=== PATIENT | female | born 1950 | race Caucasian/White ===

== ENCOUNTER → 2017-05-11 | Outpatient (CLI) | payer OTHER ==
[~2017-05-11] MED LIST: CARV12.52 PO; CYAN10004 PO; GLIM2TAB PO; HYDR25TA4 PO; IRON PO; METF-384 PO; POTA20TA16 PO; RUTIN PO; VITAMIN D 3 PO; WARF10TA PO; WARF5TAB7 PO; [UNRECOGNIZED DRUG - OTHER] PO; [UNRECOGNIZED DRUG - OTHER] PO; [UNRECOGNIZED DRUG - OTHER] PO; pine bark PO; quercetin PO
--- NOTE | 2017-05-11 15:42 | MAMMOGRAPHY REPORT ---
BILATERAL DIGITAL SCREENING MAMMOGRAM TOMOSYNTHESIS WITH CAD: 05/11/2017 CLINICAL HISTORY: Routine screening. Patient has no complaints. TECHNIQUE: Breast tomosynthesis in addition to standard 2D mammography was performed. Current study was also evaluated with a Computer Aided Detection (CAD) system. COMPARISON: Comparison is made to exams dated: 05/09/2016 mammogram, 05/06/2015 mammogram, 04/30/2014 ma mmogram, 04/17/2013 mammogram, 04/16/2012 mammogram, and 04/13/2011 mammogram - [facility] nter. BREAST COMPOSITION: The tissue of both breasts is heterogeneously dense, which may obscure small mas ses. FINDINGS: There are stable asymmetries bilaterally. Diffuse bilateral benign-appearing rodlike and coarse calcifications. No new suspicious mass, architectural distortion or cluster of microcalcifica tions is seen. IMPRESSION: ACR BI-RADS CATEGORY 1: NEGATIVE There is no mammographic evidence of malignancy. A 1 year screening mammogram is recommended. The pa tient will receive written notification of the results. Approximately 10% of breast cancers are not detected with mammography. A negative mammographic report should not delay biopsy if a clinically suggestive mass is present. Caitlyn Garner M.D. ay/:05/11/2017 15:25:19 Hearing Therapy Director: Maia BUSTAMANTE)(Jamin), [facility] letter sent: Normal 1/2 BI-RADS Code: ACR BI-RADS Category 1: Negative
== END | disposition home or self-care (01) ==
LOC: C.MAMM 09:00
PROVIDERS: ATTEND Family Medicine
DX: Z12.31 Encounter for screening mammogram for malignant neoplasm of breast (principal)

== ENCOUNTER → 2017-10-02 | Outpatient (CLI) | payer OTHER | END | disposition home or self-care (01) | LOC: C.RDSM 14:03 | PROVIDERS: ATTEND Physical Medicine & Rehabilitation Sports Medicine | DX: M25.511 Pain in right shoulder (principal); M25.512 Pain in left shoulder ==

== ENCOUNTER → 2017-10-06 | Outpatient (CLI) | payer OTHER ==
--- NOTE | 2017-10-06 08:48 | DIAGNOSTIC IMAGING REPORT ---
R UPPER EXT JOINT WITHOUT CLINICAL HISTORY: 66 years-old Female with R SHOULDER PAIN. Chronic right shoulder pain COMPARISON: Right shoulder radiographs 10/02/2017. TECHNIQUE: Multiplanar, multi sequence MRI of the right shoulder was performed without intravenous contrast. FINDINGS: ROTATOR CUFF: Full-thickness tear of the anterior and mid fibers of the supraspinatus tendon measures 2.3 x 2.5 cm in transverse and AP dimension nicely seen on image 11 series 6 and image 6 series 10. Tendon is retracted to the level of the mid humeral head. There are some mid and posterior fibers of the supraspinatus tendon which remain intact. There is mild atrophy of the supraspinatus musculature. Mild to moderate tendinosis of the infraspinatus tendon with low-grade interstitial tearing of the insertional fibers as seen on image 8 series 6. The subscapularis tendon is intact with moderate tendinosis. Teres minor is intact. BICEPS TENDON: The long-head biceps tendon is intact. Mild intra-articular long head biceps tendinosis. The biceps james and anchor are intact. LABRUM: There is tearing of the superior labrum within both the anterior and posterior quadrants without associated edema. Mild fraying of the inferior labrum. No displaced fragment or parameniscal cyst identified. GLENOHUMERAL JOINT: Mild glenohumeral joint space narrowing with marginal spurring and chondral thinning. Small glenohumeral joint effusion. There is no loose body or debris present within the glenohumeral joint. ACROMIOCLAVICULAR JOINT: Mild to moderate acromioclavicular osteoarthritis. No evidence of os acromiale. Moderate subacromial/subdeltoid bursitis. OUTLET SPACES: The suprascapular notch and quadrilateral space are without obstructing or space occupying lesions. BONE MARROW: Multifocal subcortical cystic changes of the humeral head. No acute fracture, dislocation or significant marrow edema. No marrow replacing process. SOFT TISSUES: The periarticular soft tissues are unremarkable. IMPRESSION: 1. Mild glenohumeral and mild to moderate acromioclavicular osteoarthritis with small joint effusion and moderate subacromial/subdeltoid bursitis. 2. Full-thickness tear of the anterior and mid fibers of the supraspinatus tendon measuring up to 2.5 cm with tendon retraction to the level of the mid humeral head. Mild associated atrophy of the supraspinatus musculature. 3. Mild to moderate tendinosis of the infraspinatus tendon with low-grade interstitial tearing. 4. Likely chronic labral tears as above. 5. Long head biceps tendon appears intact. The above report was generated using voice recognition software. It may contain grammatical, syntax or spelling errors. Electronically signed by: Alfonso Benz M.D. 10/06/2017 8:47 AM Dictated Date/Time: 10/06/2017 8:37 AM
== END | disposition home or self-care (01) ==
LOC: C.MRI 07:38
PROVIDERS: ATTEND Physical Medicine & Rehabilitation Sports Medicine
DX: M75.101 Unspecified rotator cuff tear or rupture of right shoulder, not specified as traumatic (principal)

== ENCOUNTER → 2018-05-31 | Outpatient (CLI) | payer OTHER ==
[~2018-05-31] MED LIST changes: +POTA-639 PO; -POTA20TA16 PO
--- NOTE | 2018-06-01 15:29 | MAMMOGRAPHY REPORT ---
BILATERAL DIGITAL SCREENING MAMMOGRAM TOMOSYNTHESIS WITH CAD: 05/31/2018 CLINICAL HISTORY: Routine screening. Patient has no complaints. TECHNIQUE: The study was acquired using full field digital technology and interpreted from soft copy. Breast tomosynthesis in addition to standard 2D mammography was performed. Current study was also ev aluated with a Computer Aided Detection (CAD) system. COMPARISON: Comparison is made to exams dated: 05/11/2017 mammogram, 05/09/2016 mammogram, 05/06/2015 m ammogram, 04/30/2014 mammogram, 04/17/2013 mammogram, and 04/16/2012 mammogram - [facility] nter. BREAST COMPOSITION: The tissue of both breasts is heterogeneously dense, which may obscure small mass es. FINDINGS: No suspicious masses, calcifications, or areas of architectural distortion are noted in either breast . There has been no significant interval change compared to prior exams. Scattered bilateral benign- appearing calcifications are again noted. IMPRESSION: ACR BI-RADS CATEGORY 2: BENIGN There is no mammographic evidence of malignancy. A 1 year screening mammogram is recommended.( 019) The patient will receive written notification of the results. Some breast cancers are not detected with mammography. A negative mammographic report should not julianna y biopsy if a clinically suggestive mass is present. Lily Hart M.D. /:05/31/2018 16:02:18 Reuse Technician: RT Chelsea(R)(M), [facility] letter sent: Normal 1/2 BI-RADS Code: ACR BI-RADS Category 2: Benign
== END | disposition home or self-care (01) ==
LOC: C.MAMM 14:51
PROVIDERS: ATTEND Family Medicine
DX: Z12.31 Encounter for screening mammogram for malignant neoplasm of breast (principal)

== ENCOUNTER 2019-11-15 09:44 | Observation (INO) ==
[2019-11-15] MEDS ORDERED: ALBUT/IPRATROP 3MG/0.5MG NEB 3 ML VIAL INH STA (10:03)
[2019-11-15] MEDS ORDERED: SODIUM CHLORIDE 0.9% 1000ML 1,000 ML IV ONE ×2 (10:03→12:03)
[2019-11-15 10:35] LABS: Basophils # (auto) 0.02 K/uL (0-0.2); Basophils % (auto) 0.4 %; Eosinophils # (auto) 0.06 K/uL (0-0.5); Eosinophils % (auto) 1.3 %; Hematocrit (blood only) 27.9 % (37-47); Hemoglobin 9.2 g/dL (12.0-16.0); Immature Granulocytes # (auto) 0.01 K/uL (0.00-0.02); Immature Granulocytes % (auto) 0.2 %; Lymphocytes # (auto) 0.22 K/uL (1.2-3.4); Lymphocytes % (auto) 4.6 %; Mean Corpuscular Hemoglobin 32.3 pg (25-34); Mean Corpuscular Volume 97.9 fL (80-100); Mean Platelet Volume 10.3 fL (7.4-10.4); Monocytes % (auto) 6.3 %; Neutrophils # (auto) 4.13 K/uL (1.4-6.5); Neutrophils % (auto) 87.2 %; Platelet Count 293 K/uL (130-400); RDW Coefficient of Variation 13.5 % (11.5-14.5); RDW Standard Deviation 47.7 fL (36.4-46.3); Red Blood Count 2.85 M/uL (4.2-5.4); White Blood Count 4.74 K/uL (4.8-10.8)
[2019-11-15 10:51] LABS: BUN Creatinine Ratio 24.6 (10-20); Blood Urea Nitrogen 56 mg/dl (7-18); Calcium 10.5 mg/dl (8.5-10.1); Carbon Dioxide 25 mmol/L (21-32); Chloride 99 mmol/L (98-107); Creatinine Clr Calc Pharmacy 22.9 ml/min; Est GFR (African American) 24.4; Est GFR (Non-African American) 21.1; Glucose 272 mg/dl (70-99); Magnesium 1.6 mg/dl (1.8-2.4); Potassium 5.6 mmol/L (3.5-5.1); Sodium 131 mmol/L (136-145)
[2019-11-15 10:56] LABS: Alanine Aminotransferase 16 U/L (12-78); Albumin Globulin Ratio 0.6 (0.9-2); Alkaline Phosphatase 132 U/L (45-117); Aspartate Aminotransferase 18 U/L (15-37); Bilirubin,Total 0.3 mg/dl (0.2-1); Globulin 4.7 gm/dl (2.5-4.0); Total Protein 7.7 gm/dl (6.4-8.2); Troponin I < 0.015 ng/ml (0-0.045)
[2019-11-15 11:00] LABS: Partial Thromboplastin Ratio 2.4; Prothrombin Time 79.1 Seconds (9.0-12.0)
--- NOTE | 2019-11-15 11:14 | XRay Report ---
XR chest 1V portable HISTORY: 69 years-old Female SOB acute shortness of breath COMPARISON: Chest radiograph 10/11/2019, PET CT 09/18/2019 TECHNIQUE: Semierect portable AP view of the chest FINDINGS: Cardiac silhouette is mildly enlarged. Calcified plaque of the thoracic aortic arch. Ill-defined righ t hilar/infrahilar opacities have mildly progressed in the interval. Mild right hemidiaphragmatic amanda vation. No pneumothorax, large pleural effusion or overt pulmonary edema. Left upper lobe pulmonary n odule is better seen on comparison chest CT. Degenerative changes of the shoulders and spine. Lytic l esion of the posterior left fifth rib redemonstrated. IMPRESSION: 1. Right hilar/infrahilar opacities have progressively worsened from comparison. Metastatic disease v ersus infectious or inflammatory pneumonitis are differential considerations. 2. Lytic lesion of the posterior left fifth rib redemonstrated. ACT 112: Negative or not required by law. The above report was generated using voice recognition software. It may contain grammatical, syntax o r spelling errors. Electronically signed by: Alfonso Benz M.D. 11/15/2019 11:12 AM
[2019-11-15] MEDS ORDERED: MAGNESIUM SULFATE / D5W 1 GM/100 ML BAG IV ONE (11:18)
[2019-11-15 11:37] LABS: Partial Thromboplastin Time 63.8 Seconds (21.0-31.0)
[2019-11-15] MEDS ORDERED: PHYTONADIONE 5 MG TAB PO STA (12:03)
--- NOTE | 2019-11-15 12:26 | History & Physical Report ---
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 -H/o mediastinal metastasis with today's CXR showing right hilar/infrahilar opacities have progressively worsened from comparison. Metastatic disease versus infectious or inflammatory pneumonitis as differential diagnosis -Afebrile, no leukocytosis, stable cough, no wheezing so lower concern for infectious process. No sick contacts. Added procalcitonin, ESR and CRP pending -Has not received antibiotics at this point. Will re-evaluate with additional resulting labs (2) Acute kidney injury superimposed on chronic kidney disease: Cr elevated to 2.28 (baseline low 1s) in setting of poor PO intake, lisinopril-hctz use -Given 1 L NSS in ED. Will continue with maintenance fluids, daily BMP -Holding lisinopril-hctz (3) Salivary gland cancer: (4) Metastasis to mediastinal lymph node: (5) Bone metastasis: Following with Dr. Bah for daily XRT and has follow-up scheduled with Dr. Bah of [facility] to further discuss plans for systemic treatment -Recently had tramadol increased from 50 to 100mg but it is causing nausea and some confusing. Will decreased back to 50mg Q6H PRN. Also added Tylenol 100mg Q8H PRN (6) Supratherapeutic INR: INR of 9 today - last took coumadin yesterday -Current regimen is 5mg MWF and 10mg SuTuThSa -No active bleeding. Monitor closely -Given 5mg PO Vit K in ED. Hold coumadin -Monitor daily INR (7) Hyperkalemia: K of 5.6 initially in setting of poor PO intake, KCl supplement -Should improve with IV fluids, holding potassium supplement -Monitor daily (8) History of pulmonary embolism: Chronic anticoagulation for remote history of DVTs and PE -Holding coumadin with supratherapeutic INR (9) Anemia: Hgb of 9.2 (most recently documented hgb of 11.4 from 2016) -MCV of 98, RDW mildly elevated at 47 -Monitor with daily CBC, continue iron supplement (10) Constipation: No BM for past 2 days in setting of poor PO intake -Schedule daily Miralax, added Senokot-S (11) Poor appetite: In setting of recent cancer diagnosis, contributing to electrolyte abnormalities -Added protein shake BID -Dietitian consult for suggestions to improve overall nutrition DVT Ppx: SCDs Code status: DNR per discussion with patient PCP: Denisa Dispo: Admitted to PCU. Discharge planning, PT and OT ordered. Patient seen in collaboration with Dr. Polanco. Please see addendum. 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 Was diagnosed with salivary gland cancer in August 2019 and has been undergoing daily radiation at [facility] with Dr. Bah. Did not feel well enough for radiation this morning and was directed to the ED for further evaluation. Denies any fever or chills but endorses cough with yellow productive sputum ever since cancer diagnosis 2 months ago. No wheezing or hemoptysis. Decreased appetite over the last week or so with poor p.o. intake. Also became nauseous with increase tramadol dose from 50 to 100mg two days ago and has been nauseous. Denies any vomiting. Denies lightheadedness, visual changes, chest pain, palpitations, abdominal pain, dysuria or diarrhea. Feels constipated and has not had a bowel movement in 2 days. Saturating at 91% on room air. Does not require home O2. Allergies Allergy/AdvReac Type Severity Reaction Status Date / Time [id number] Reductase Allergy Unknown muscle Verified 11/11/19 12:04 Inhibitor cramping and difficulty walking onion AdvReac Intermediate Verified 11/11/19 12:04 ADHESIVE Allergy Unknown irritated Uncoded 11/11/19 12:04 skin Home Medications Home Medications Medication Instructions Recorded Confirmed Type carvedilol 12.5 mg tablet 12.5 mg PO BID 09/30/19 11/15/19 History cyanocobalamin (vitamin B-12) 1,000 mcg PO BID 09/30/19 11/15/19 History 1,000 mcg capsule metformin 1,000 mg tablet 1,000 mg PO BID 09/30/19 11/15/19 History amlodipine 5 mg PO QDL 10/04/19 11/15/19 History ferrous sulfate [iron] 325 mg PO BID 10/04/19 11/15/19 History lisinopril-hydrochlorothiazide 1 tab PO QDL 10/04/19 11/15/19 History loratadine 10 mg PO QDL 10/04/19 11/15/19 History multivitamin 1 tab PO QDL 10/04/19 11/15/19 History potassium chloride [Klor-Con M20] 20 meq PO QDL 10/04/19 11/15/19 History glimepiride 2 mg tablet 2 mg PO DAILY 10/30/19 11/15/19 History morphine 15 mg tablet,extended 15 mg PO Q12H 10/30/19 11/15/19 History release warfarin 5 mg tablet 10 mg PO SUTUTHSA@1600 tab 10/30/19 11/15/19 History tramadol 100 mg PO Q6H PRN 11/15/19 11/15/19 History warfarin 5 mg PO MOWEFR@1600 11/15/19 11/15/19 History Past Med/Surg History Medical History (Updated 11/15/19 @ 13:45 by Ewa Goode PA-C) Anemia Bone metastasis (Chronic) Chronic anticoagulation Diabetes mellitus, type 2 Dyslipidemia Heart murmur Hiatal hernia History of diverticulosis History of pulmonary embolism (Chronic) Hypertension 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 Cordova 10-11-19 Family History Mother , 72yo Diabetes IBS (irritable bowel syndrome) Blood clot in vein Ulcerative colitis Father , 61yo Multiple myeloma Sister Diabetes Bipolar disorder Obesity Social History Preferred Language: Vietnamese Communication Ability: Effective Visual Impairment: No Limitations Hearing Ability: Normal Stave Grader Required: No Beliefs That Will Affect Care: None marital status: Current Living Situation: Significant Other current occupational status: retired current occupation: Did secretarial work; Other Information That Helps Us Care for You: No Feels Safe at Home: Yes Safety Concerns: Feels Safe At This Time Smoking Status: Former smoker Tobacco Type: cigarettes ; packs per day: 2 ; Cigarettes Per Day: 3 PPD x 48 yrs;Quit 1981 ; Smoking End Date: 1981 ; Second Hand Exposure: Yes ; Hx Alcohol Use: Yes Alcohol type: beer and wine Hx Substance Use: No caffeine: No during the past year weight has: remained stable Review of Systems Review of Systems: At least ten systems reviewed and negative except as noted in the HPI. Physical Exam Physical Exam: See Dr. Polanco's addendum for physical exam Results & Data Vital Signs (Past 12 Hours) Vital Signs Temp Pulse Pulse Resp BP Pulse Ox 11/15/19 10:29 78 16 92 11/15/19 10:03 100 11/15/19 09:45 36.6 C 68 15 163/78 H 99 Laboratory Results Short CBC 11/15/19 Range/Units 10:25 WBC 4.74 L (4.8-10.8) K/uL Hgb 9.2 L (12.0-16.0) g/dL Hct 27.9 L (37-47) % Plt Count 293 (130-400) K/uL BMP 11/15/19 10:25 Sodium 131 L Potassium 5.6 H Chloride 99 Carbon Dioxide 25 BUN 56 H Creatinine 2.28 H Glucose 272 H Calcium 10.5 H Cardiac Enzymes 11/15/19 Range/Units 10:25 Troponin I < 0.015 (0-0.045) ng/ml Liver Function 11/15/19 Range/Units 10:25 Total Bilirubin 0.3 (0.2-1) mg/dl AST 18 (15-37) U/L ALT 16 (12-78) U/L Alkaline Phosphatase 132 H (45-117) U/L Albumin 3.0 L (3.4-5.0) gm/dl Diagnostic Findings CXR: IMPRESSION: 1. Right hilar/infrahilar opacities have progressively worsened from comparison. Metastatic disease versus infectious or inflammatory pneumonitis are differen tial considerations. 2. Lytic lesion of the posterior left fifth rib redemonstrated. 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 History detailed by Ewa Goode PA-C History notable for shortness of breath, fatigue, chronic productive cough (over 2 months, unchanged), reports feeling dizzy and nausea which she ascribes to tramadol which was increased 2 days ago, constipation, gum bleed with brushing. Denied any fevers, chills, vomiting Denied any hematuria, BRBPR, hematochezia, melena On physical exam, General: Elderly woman in no acute distress Eyes: PERRL, conjunctivae normal, mild pallor, anicteric sclerae, EOM intact bilaterally ENMT: External ear and nose normal, oropharynx normal Neck: Right submandibular swelling, Non tender, significant submandibular lymphadenopathy (reported this has been chronic since surgeries/biopsy), no tracheal deviation Respiratory: Normal respiratory effort, no respiratory distress, lungs clear to auscultation, no crackles and no wheezes Cardiovascular: Pulse is RRR. S1 S2 no murmurs. +1 pedal edema Chest (Breasts): Chest: normal inspection of chest Gastrointestinal (Abdomen): Abdomen is not distended, soft, non-tender to palpation, no guarding, no palpable hepatosplenomegaly, normal bowel sounds Musculoskeletal: No cyanosis or clubbing Genitourinary: No CVA tenderness, no suprapubic tenderness Skin: No rash noted on gross inspection, No ulcers noted, hyperpigemented skin on both shins (features of chronic stasis dermatitis) Neurologic: Alert and oriented x 3, No focal weakness, sensation grossly intact Psychiatric: Euthymic affect, normal judgement Lymphatic: +Right submandibular lymphadenopathy, No axillary lymphadenopathy Chest Xray 1. Right hilar/infrahilar opacities have progressively worsened from comparison. Metastatic disease versus infectious or inflammatory pneumonitis are differential considerations. 2. Lytic lesion of the posterior left fifth rib redemonstrated. Hb 9.2 Cr 2,28 INR 9 K 5.9 Mag 1.6 Calcium corrected for albumin is 11.3 Na corrected for glucose is 134 REBECCA on CKD Hypomagnesemia Hyperkalemia Hypercalcemia Supratherapeutic INR Normocytic Anemia Shortness of breath Low suspicion for pneumonia Get procalcitonin. No antibiotics Replete mag and monitor Continue IVF Monitor calcium and potassium Hold lisinopril-HCTZ, metformin Monitor Cr Got po vit K in ER. Hold coumadin and monitor INR and bleeding Monitor Hb Constipation likely related to tramadol. Laxatives Other plan as detailed above (1) Anemia Anemia type: unspecified type Qualified Code(s): D64.9 - Anemia, unspecified
[2019-11-15] MEDS ORDERED: TRAMADOL HCL 50 MG TABLET PO PRN (13:04)
[2019-11-15] MEDS ORDERED: GLUCAGON FOR INJ 1 MG VIAL SQ PRN (14:04)
[2019-11-15] MEDS ORDERED: GLUCOSE 10 TABS/TUBE PO PRN (14:04)
[2019-11-15] MEDS ORDERED: GLUCOSE 40% GEL 15 GM TUBE PO PRN (14:04)
[2019-11-15] MEDS ORDERED: CARBOHYDRATES FOR HYPOGLYCEMIA PO PRN (14:04)
[2019-11-15] MEDS ORDERED: DEXTROSE 50% 50 ML SYRINGE IV PRN (14:04)
[2019-11-15] MEDS: SODIUM CHLORIDE 0.9% 1000ML 1,000 ML IV SCH (15:36)
[2019-11-15] MEDS: DOCUSATE SODIUM/SENNA 50/8.6MG TAB PO SCH (15:36)
[2019-11-15] MEDS: ACETAMINOPHEN 500 MG TAB PO SCH ×2 (15:36→21:07)
--- NOTE | 2019-11-15 17:07 | Emergency Department Note ---
Entered by Juliana Sandhu acting as a scribe for History of Present Illness General Chief complaint: Shortness of Breath/Dyspnea Stated complaint: SOB Time Seen by Provider: 11/15/19 09:57 Source: patient History of Present Illness Onset (ago): day(s) (this morning) Location: chest Pain Consistency: + other (episode) Maximum Pain Intensity: 3 Quality: + other (shortness of breath) Associated symptoms: + nausea/vomiting (Positive nausea. Negative vomiting. ) and + other (disoriented, dizzy, feels dehydrated); no cough and no fever/chills (fever) The patient is a 69 year old female who presents to the Emergency Room with complaints of an episode of shortness of breath starting this morning. 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 Bah. She states that she is only being treated with radiation and no chemotherapy as they are unsure what the source of her cancer is. She states that her first treatment was 8 days ago and she was supposed to have another today, but when she noticed that she was short of breath, she didnt feel comfortable going for the treatment. The patient notes that she has increased pain when lying flat to get the radiation so last week they upped her Tramadol from 50 mg to 100 mg every 6 hours. She states that since the increase she has had felt disoriented and dizzy. The patient complains of feeling dehydrated and nauseous. She notes that she did take an antiemetic this morning. The patient notes that she does have an inhaler at home, but has not used it in years. She notes that she was a smoker, but quit in the . She notes that she has a history of a DVT 23 years ago and is on Warfarin. She states that recently her levels have been okay, but they have been back and for the between too low and high, so they have been working on adjusting it. The patient denies a fever, increased cough, vomiting, use of oxygen, a history of diagnosed lung disease, and a history of a heart attack. Home Medications Home Medications Medication Instructions Recorded Confirmed Type carvedilol 12.5 mg tablet 12.5 mg PO BID 09/30/19 11/15/19 History cyanocobalamin (vitamin B-12) 1,000 mcg PO BID 09/30/19 11/15/19 History 1,000 mcg capsule metformin 1,000 mg tablet 1,000 mg PO BID 09/30/19 11/15/19 History amlodipine 5 mg PO QDL 10/04/19 11/15/19 History ferrous sulfate [iron] 325 mg PO BID 10/04/19 11/15/19 History lisinopril-hydrochlorothiazide 1 tab PO QDL 10/04/19 11/15/19 History loratadine 10 mg PO QDL 10/04/19 11/15/19 History multivitamin 1 tab PO QDL 10/04/19 11/15/19 History potassium chloride [Klor-Con M20] 20 meq PO QDL 10/04/19 11/15/19 History glimepiride 2 mg tablet 2 mg PO DAILY 10/30/19 11/15/19 History morphine 15 mg tablet,extended 15 mg PO Q12H 10/30/19 11/15/19 History release warfarin 5 mg tablet 10 mg PO SUTUTHSA@1600 tab 10/30/19 11/15/19 History tramadol 100 mg PO Q6H PRN 11/15/19 11/15/19 History warfarin 5 mg PO MOWEFR@1600 11/15/19 11/15/19 History Allergies Allergy/AdvReac Type Severity Reaction Status Date / Time Qaxkrip-Fuk-Cev Reductase Allergy Unknown muscle Verified 11/11/19 12:04 Inhibitor cramping and difficulty walking onion AdvReac Intermediate Verified 11/11/19 12:04 ADHESIVE Allergy Unknown irritated Uncoded 11/11/19 12:04 skin Past Med/Surg History Medical History (Updated 11/15/19 @ 13:45 by Ewa Goode PA-C) Anemia Bone metastasis (Chronic) Chronic anticoagulation Diabetes mellitus, type 2 Dyslipidemia Heart murmur Hiatal hernia History of diverticulosis History of pulmonary embolism (Chronic) Hypertension 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 Cordova 10-11-19 Family History Mother , 72yo Diabetes IBS (irritable bowel syndrome) Blood clot in vein Ulcerative colitis Father , 61yo Multiple myeloma Sister Diabetes Bipolar disorder Obesity Social History Preferred Language: Chinese Communication Ability: Effective Visual Impairment: No Limitations Hearing Ability: Normal [place] Closer Required: No Beliefs That Will Affect Care: None marital status: Current Living Situation: Significant Other current occupational status: retired current occupation: Did secretarial work; Other Information That Helps Us Care for You: No Feels Safe at Home: Yes Safety Concerns: Feels Safe At This Time Smoking Status: Former smoker Tobacco Type: cigarettes ; packs per day: 2 ; Cigarettes Per Day: 3 PPD x 48 yrs;Quit 1981 ; Smoking End Date: 1981 ; Second Hand Exposure: Yes ; Hx Alcohol Use: Yes Alcohol type: beer and wine Hx Substance Use: No caffeine: No during the past year weight has: remained stable Review of Systems See HPI for pertinent positives & negatives. and A total of 10 systems reviewed and were otherwise negative Physical Exam Vital Signs Vital Signs - 24 hr 11/15/19 09:45 11/15/19 10:03 11/15/19 10:27 Temperature 36.6 C Temperature Source Oral Pulse Rate 68 72 Pulse Rate [Radial] Pulse Rate from SpO2 Sensor 73 Respiratory Rate 15 15 Respiratory Effort / Characteristics Non-Labored Respiratory Depth Normal Respiratory Pattern Regular Blood Pressure 163/78 H 127/64 Blood Pressure Mean 106 74 Blood Pressure Position Sitting Pulse Oximetry 99 100 95 Oxygen Delivery Method Room Air Room Air Sepsis Recent Fever Within 48 Hours No Sepsis New/Unexplained Change in Mental Status No Sepsis Action Taken by Nursing No Action Required 11/15/19 10:29 11/15/19 10:40 11/15/19 11:00 Temperature Temperature Source Pulse Rate 68 73 Pulse Rate [Radial] 78 Pulse Rate from SpO2 Sensor 71 73 Respiratory Rate 16 15 17 Respiratory Effort / Characteristics Spontaneous Respiratory Depth Respiratory Pattern Blood Pressure 155/77 H 146/70 H Blood Pressure Mean 115 112 Blood Pressure Position Pulse Oximetry 92 97 90 Oxygen Delivery Method Room Air Sepsis Recent Fever Within 48 Hours Sepsis New/Unexplained Change in Mental Status Sepsis Action Taken by Nursing 11/15/19 12:08 Temperature Temperature Source Pulse Rate 67 Pulse Rate [Radial] Pulse Rate from SpO2 Sensor 69 Respiratory Rate 16 Respiratory Effort / Characteristics Respiratory Depth Respiratory Pattern Blood Pressure 189/77 H Blood Pressure Mean 128 Blood Pressure Position Pulse Oximetry 91 Oxygen Delivery Method Sepsis Recent Fever Within 48 Hours Sepsis New/Unexplained Change in Mental Status Sepsis Action Taken by Nursing GENERAL: Patient is in no acute distress. HEENT: No acute trauma, normocephalic atraumatic, mucous membranes are dry, no nasal congestion, no scleral icterus. NECK: No stridor, no adenopathy, no meningismus, trachea is midline. LUNGS: Scattered wheezes. No rhonchi. Equal breath sounds. No respiratory distress. HEART: 3-4/6 systolic murmur heard best at the right sternal border. Regular rate and rhythm. ABDOMEN: Soft, nontender, bowel sounds positive, no hernias, no peritonitis. EXTREMITIES: No cyanosis or edema, full range of motion of all the joints without pain or difficulty, no signs for acute trauma. NEUROLOGIC: Oriented x 3, no acute motor or sensory deficits, no focal weakness. SKIN: No rash, no jaundice, no diaphoresis. Course Course 957: The patient was evaluated in room A12B. A complete history and physical exam was performed. 1136: I obtained old records from [facility] and reviewed them at this time. On October 02, 2019, the patient had a Creatinine of 1.4 and a Hemoglobin of 11.2. 1156: I discussed the patient's case with Ewa Goode PA-C-[facility]. She will evaluate the patient for further management under Dr. Polanco's service. 1202: I reevaluated the patient and updated her on her test results. I discussed the treatment plan with her. She verbally agrees and understands. Administered Medications Acetaminophen (Tylenol) 1,000 mg PO Q8 [facility] Stop: 12/15/19 14:14 Last Admin: 11/15/19 15:36 Dose: 1,000 mg Documented by: [id number] Ferrous Sulfate (Feosol) 325 mg PO BIDM [facility] Stop: 12/15/19 16:59 Last Admin: 11/15/19 18:27 Dose: 325 mg Documented by: [id number] Sodium Chloride (Nss 1000ml) 1,000 mls @ 100 mls/hr IV .Q10H [facility] Stop: 12/15/19 14:03 Last Admin: 11/15/19 15:36 Dose: 100 mls/hr Documented by: [id number] Insulin Aspart (Novolog Flexpen) 0 units SC ACHS [facility] Stop: 12/15/19 16:29 Last Admin: 11/15/19 18:27 Dose: 7 units Documented by: [id number] Cosigned by: [id number] Senna/Docusate Sodium (Senokot S) 1 tab PO QAM [facility] Stop: 12/15/19 13:29 Last Admin: 11/15/19 15:36 Dose: 1 tab Documented by: [id number] Discontinued Medications Albuterol (Duoneb) 3 ml INH NOW STA Stop: 11/15/19 10:04 Last Admin: 11/15/19 10:29 Dose: 3 ml Documented by: [id number] Sodium Chloride (Nss 1000ml) 1,000 mls @ 999 mls/hr IV .Q1H1M ONE Stop: 11/15/19 11:03 Last Infusion: 11/15/19 12:17 Dose: 0 mls/hr Documented by: [id number] Admin: 11/15/19 10:24 Dose: 999 mls/hr Documented by: [id number] Magnesium Sulfate/Dextrose (Magnesium Sulfate / D5w) 1 gm in 100 mls @ 100 mls/hr IV ONE ONE Stop: 11/15/19 12:17 Last Infusion: 11/15/19 13:20 Dose: 0 mls/hr Documented by: [id number] Admin: 11/15/19 12:17 Dose: 100 mls/hr Documented by: [id number] Sodium Chloride (Nss 1000ml) 1,000 mls @ 999 mls/hr IV .Q1H1M ONE Stop: 11/15/19 13:03 Last Infusion: 11/15/19 13:20 Dose: 0 mls/hr Documented by: [id number] Admin: 11/15/19 12:17 Dose: 999 mls/hr Documented by: [id number] Phytonadione (Mephyton) 5 mg PO NOW STA Stop: 11/15/19 12:04 Last Admin: 11/15/19 12:17 Dose: 5 mg Documented by: [id number] Medical Decision Making Differential Diagnosis Differential diagnoses include pneumonia, bronchitis, CHF, medication reaction, PE, anemia, dehydration, cardiac ischemia, URI. Medical Records Attestation: I reviewed the patient's medical records. Home Medications Current Medication List: was personally reviewed by me Laboratory Data Attestation: I reviewed the patient's lab results. Result diagrams: 11/15/19 10:25 11/15/19 10:25 Lab Results 11/15/19 11/15/19 11/15/19 Range/Units 10:25 10:25 10:25 WBC 4.74 L (4.8-10.8) K/uL RBC 2.85 L (4.2-5.4) M/uL Hgb 9.2 L (12.0-16.0) g/dL Hct 27.9 L (37-47) % MCV 97.9 (80-100) fL MCH 32.3 (25-34) pg MCHC 33.0 (32-36) g/dL RDW Std Deviation 47.7 H (36.4-46.3) fL RDW Coeff of Jose 13.5 (11.5-14.5) % Plt Count 293 (130-400) K/uL MPV 10.3 (7.4-10.4) fL Immature Gran % (Auto) 0.2 % Neut % (Auto) 87.2 % Lymph % (Auto) 4.6 % [place] % (Auto) 6.3 % Eos % (Auto) 1.3 % Baso % (Auto) 0.4 % Immature Gran # (Auto) 0.01 (0.00-0.02) K/uL Neut # (Auto) 4.13 (1.4-6.5) K/uL Lymph # (Auto) 0.22 L (1.2-3.4) K/uL [place] # (Auto) 0.30 (0.11-0.59) K/uL Eos # (Auto) 0.06 (0-0.5) K/uL Baso # (Auto) 0.02 (0-0.2) K/uL ESR (0-21) mm/hr PT 79.1 H (9.0-12.0) Seconds INR 9.0 H* (0.9-1.1) APTT 63.8 H* (21.0-31.0) Seconds PTT Ratio 2.4 Sodium 131 L (136-145) mmol/L Potassium 5.6 H (3.5-5.1) mmol/L Chloride 99 (98-107) mmol/L Carbon Dioxide 25 (21-32) mmol/L Anion Gap 7.0 (3-11) BUN 56 H (7-18) mg/dl Creatinine 2.28 H (0.6-1.2) mg/dl Est Cr Clr Drug Dosing 22.9 ml/min Est GFR ( Amer) 24.4 Est GFR (Non-Af Amer) 21.1 BUN/Creatinine Ratio 24.6 H (10-20) Glucose 272 H (70-99) mg/dl Calcium 10.5 H (8.5-10.1) mg/dl Magnesium 1.6 L (1.8-2.4) mg/dl Total Bilirubin 0.3 (0.2-1) mg/dl AST 18 (15-37) U/L ALT 16 (12-78) U/L Alkaline Phosphatase 132 H (45-117) U/L Troponin I < 0.015 (0-0.045) ng/ml C-Reactive Protein (0-0.29) mg/dl Total Protein 7.7 (6.4-8.2) gm/dl Albumin 3.0 L (3.4-5.0) gm/dl Globulin 4.7 H (2.5-4.0) gm/dl Albumin/Globulin Ratio 0.6 L (0.9-2) Procalcitonin (0-0.5) ng/ml 11/15/19 11/15/19 11/15/19 Range/Units 10:25 10:25 10:25 WBC (4.8-10.8) K/uL RBC (4.2-5.4) M/uL Hgb (12.0-16.0) g/dL Hct (37-47) % MCV (80-100) fL MCH (25-34) pg MCHC (32-36) g/dL RDW Std Deviation (36.4-46.3) fL RDW Coeff of Jose (11.5-14.5) % Plt Count (130-400) K/uL MPV (7.4-10.4) fL Immature Gran % (Auto) % Neut % (Auto) % Lymph % (Auto) % [place] % (Auto) % Eos % (Auto) % Baso % (Auto) % Immature Gran # (Auto) (0.00-0.02) K/uL Neut # (Auto) (1.4-6.5) K/uL Lymph # (Auto) (1.2-3.4) K/uL [place] # (Auto) (0.11-0.59) K/uL Eos # (Auto) (0-0.5) K/uL Baso # (Auto) (0-0.2) K/uL ESR 61 H (0-21) mm/hr PT (9.0-12.0) Seconds INR (0.9-1.1) APTT (21.0-31.0) Seconds PTT Ratio Sodium (136-145) mmol/L Potassium (3.5-5.1) mmol/L Chloride (98-107) mmol/L Carbon Dioxide (21-32) mmol/L Anion Gap (3-11) BUN (7-18) mg/dl Creatinine (0.6-1.2) mg/dl Est Cr Clr Drug Dosing ml/min Est GFR ( Amer) Est GFR (Non-Af Amer) BUN/Creatinine Ratio (10-20) Glucose (70-99) mg/dl Calcium (8.5-10.1) mg/dl Magnesium (1.8-2.4) mg/dl Total Bilirubin (0.2-1) mg/dl AST (15-37) U/L ALT (12-78) U/L Alkaline Phosphatase (45-117) U/L Troponin I (0-0.045) ng/ml C-Reactive Protein 2.45 H (0-0.29) mg/dl Total Protein (6.4-8.2) gm/dl Albumin (3.4-5.0) gm/dl Globulin (2.5-4.0) gm/dl Albumin/Globulin Ratio (0.9-2) Procalcitonin 0.07 (0-0.5) ng/ml Imaging Data Radiologist's Impression: Radiology results as stated below per my review and the radiologist's interpretation: XR chest 1V portable HISTORY: 69 years-old Female SOB acute shortness of breath COMPARISON: Chest radiograph 10/11/2019, PET CT 09/18/2019 TECHNIQUE: Semierect portable AP view of the chest FINDINGS: Cardiac silhouette is mildly enlarged. Calcified plaque of the thoracic aortic arch. Ill-defined right hilar/infrahilar opacities have mildly progressed in the interval. Mild right hemidiaphragmatic elevation. No pneumothorax, large pleural effusion or overt pulmonary edema. Left upper lobe pulmonary nodule is better seen on comparison chest CT. Degenerative changes of the shoulders and spine. Lytic lesion of the posterior left fifth rib redemonstrated. IMPRESSION: 1. Right hilar/infrahilar opacities have progressively worsened from comparison. Metastatic disease versus infectious or inflammatory pneumonitis are differential considerations. 2. Lytic lesion of the posterior left fifth rib redemonstrated. ACT 112: Negative or not required by law. The above report was generated using voice recognition software. It may contain grammatical, syntax or spelling errors. Electronically signed by: Alfonso Benz M.D. 11/15/2019 11:12 AM ECG Data Attestation: I personally reviewed and interpreted this ECG as follows: Indication: + SOB/dyspnea Rate (beats per minute): 75 Rhythm: + normal sinus ECG ST segments: no ST elevation ECG Findings: + LVH and + Other (QT-c 397); no PVCs Blood Pressure Blood Pressure Findings: Elevated blood pressure Blood Pressure Disposition: Referred to patients primary care provider MDM Narrative There is no leukocytosis. The patient is anemic, her hemoglobin has dropped about 2 points compared to recent testing. There was a normal platelet count. INR was quite elevated at 9, she is over anticoagulated. Renal panel testing shows some acute renal failure with a creatinine of 2.28. Potassium somewhat high at 5.6. Magnesium was low at 1.6. Calcium high at 10.5. The alk phos was somewhat elevated, the bilirubin and the AST and ALT were normal. EKG showed a sinus rhythm, no acute ischemia. Cardiac enzyme testing x1 was not consistent with acute cardiac injury. Chest film did not show pneumonia, there was no CHF. Her lung malignancy was larger when compared to previous films. The patient presents with shortness of breath. On exam, she has some scattered wheezing, she was not hypoxic, she was not febrile. The patient received IV saline, 2 IV saline boluses were given. She was given 5 mg of oral vitamin K to help correct her coagulopathy. She received a DuoNeb. She was given IV magnesium. Patient has multiple findings on her work-up that warrant a hospital stay. I spoke to the patient about her laboratory findings and about the enlarging lung mass. I spoke to case management. The on-call hospitalist has been consulted. Hospitalization is clearly warranted. Continuous Cardiac Monitoring: An order was placed for continuous cardiac monitoring. The monitor shows a rate of 78 with normal sinus rhythm. Impression & Plan Shortness of breath, REBECCA (acute kidney injury), Anemia, Dehydration, Lung mass Discharge Plan Visit Data *Final* Discharge Date/Time: 11/15/19 14:14 Chief Complaint: Shortness of Breath/Dyspnea Stated Complaint: SOB ED Provider: Zbigniew Eddy Discharge Problem: Shortness of breath, REBECCA (acute kidney injury), Anemia, Dehydration, Lung mass Patient Disposition: Admitted As Inpatient Discharge Instructions Interventions: ED Discharge Assessment Last Done: 11/15/19 14:14 Discharge Problem: Anemia Qualifiers: Anemia type: unspecified type Qualified Code(s): D64.9 - Anemia, unspecified The scribe's documentation has been prepared under my direction and personally reviewed by me in its entirety. I confirm that the note above accurately reflects all work, treatment, procedures, and medical decision making performed by me.
[2019-11-15] MEDS: FERROUS SULFATE 325 MG TAB PO SCH (18:27)
[2019-11-15] MEDS: INSULIN ASPART 100 UNITS/ML 3 ML PEN SC SCH ×2 (18:27→21:40)
[2019-11-15] MEDS: carvediloL 12.5 MG TAB PO SCH (21:05)
[2019-11-15] MEDS: CYANOCOBALAMIN 500 MCG TABLET (VITAMIN B-12) PO SCH (21:06)
[2019-11-16] MEDS: SODIUM CHLORIDE 0.9% 1000ML 1,000 ML IV SCH (01:22)
[2019-11-16 06:01] LABS: Hematocrit (blood only) 26.8 % (37-47); Hemoglobin 9.1 g/dL (12.0-16.0); Mean Corpuscular Volume 97.1 fL (80-100); Mean Platelet Volume 10.4 fL (7.4-10.4); Platelet Count 274 K/uL (130-400); RDW Coefficient of Variation 13.4 % (11.5-14.5); RDW Standard Deviation 46.3 fL (36.4-46.3); Red Blood Count 2.76 M/uL (4.2-5.4)
[2019-11-16 06:18] LABS: Prothrombin Time 40.4 Seconds (9.0-12.0)
--- NOTE | 2019-11-16 06:18 | Electrocardiogram Report ---
Test Reason : Blood Pressure : / mmHG Vent. Rate : 075 BPM Atrial Rate : 075 BPM P-R Int : 148 ms QRS Dur : 098 ms QT Int : 356 ms P-R-T Axes : 035 -10 026 degrees QTc Int : 397 ms Normal sinus rhythm Incomplete right bundle branch block Minimal voltage criteria for LVH, may be normal variant Borderline ECG When compared with ECG of 02-SEP-2001 14:06, Nonspecific T wave abnormality no longer evident in Lateral leads Confirmed by Nhan Huff ([id number]) on 11/16/2019 6:18:27 AM Referred By: ED Confirmed By:Nhan Huff
[2019-11-16] MEDS: ACETAMINOPHEN 500 MG TAB PO SCH (06:23)
[2019-11-16 06:25] LABS: INR 4.4 (0.9-1.1)
[2019-11-16 06:46] LABS: BUN Creatinine Ratio 24.6 (10-20); Calcium 9.5 mg/dl (8.5-10.1); Creatinine Clr Calc Pharmacy 36.5 ml/min; Est GFR (African American) 41.8; Est GFR (Non-African American) 36.1; Magnesium 1.5 mg/dl (1.8-2.4); Potassium 4.6 mmol/L (3.5-5.1)
[2019-11-16] MEDS: FERROUS SULFATE 325 MG TAB PO SCH ×2 (07:34→17:46)
[2019-11-16] MEDS: carvediloL 12.5 MG TAB PO SCH ×2 (07:35→21:14)
[2019-11-16] MEDS: CYANOCOBALAMIN 500 MCG TABLET (VITAMIN B-12) PO SCH ×2 (07:35→21:14)
[2019-11-16] MEDS: MAGNESIUM SULFATE / D5W 1 GM/100 ML BAG IV SCH ×2 (07:40→08:49)
[2019-11-16] MEDS: DOCUSATE SODIUM/SENNA 50/8.6MG TAB PO SCH (07:40)
[2019-11-16] MEDS: MAGNESIUM OXIDE 400 MG TAB PO SCH (07:48)
[2019-11-16] MEDS ORDERED: SODIUM CHLORIDE 0.9% 1000ML 1,000 ML IV SCH (08:00)
[2019-11-16] MEDS: INSULIN ASPART 100 UNITS/ML 3 ML PEN SC SCH ×4 (08:22→21:13)
[2019-11-16 08:44] LABS: Appearance Urine Clear (Clear); Bilirubin Urine Negative (Negative); Blood Urine Negative (Negative); Color Urine Yellow; Glucose Urine UA Trace (Negative); Ketones Urine 1+ (Negative); Leukocyte Esterase Urine Negative (Negative); Nitrite Urine Negative (Negative); Protein Urine Negative (Negative); Specific Gravity Urine 1.016 (1.000-1.030); Urobilinogen Urine Negative (Negative)
[2019-11-16] MEDS: MULTIVITAMIN TAB PO SCH (10:55)
[2019-11-16] MEDS: AMLODIPINE BESYLATE 5 MG TAB PO SCH (10:55)
[2019-11-16] MEDS: LORATADINE 10 MG TAB PO SCH (10:55)
[2019-11-16] MEDS ORDERED: POLYETHYLENE (MIRALAX) 17 GM PACK ONE (12:18)
[2019-11-16] MEDS: POLYETHYLENE (MIRALAX) 17 GM PACK PO SCH (12:19)
[2019-11-16 12:36] LABS: Calcium 9.8 mg/dl (8.5-10.1); Creatinine Clr Calc Pharmacy 41.9 ml/min; Est GFR (African American) 49.5; Est GFR (Non-African American) 42.7; Magnesium 2.2 mg/dl (1.8-2.4)
--- NOTE | 2019-11-16 13:48 | Hospitalist Progress Note ---
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 Metastatic disease versus infectious or inflammatory pneumonitis as differential diagnosis -Afebrile, no leukocytosis, stable cough, no wheezing so lower concern for infectious process. No sick contacts. -procalcitonin is negative -results of elevations of ESR 67 and CRP 2.45 are unrevealing given history of malignancy -no fevers to date -patient breathing on room air -send CXR as 2 view of 11/16/2019 (2) Acute kidney injury superimposed on chronic kidney disease: -on admission labs notable for creatinine of 2.28 for acute kidney injury -after IV fluids and also withholding home blood pressure medications, creatinine on 11/16/2019 afternoon labs is 1.27; blood pressure 162/90 on 11/16/2019 and will monitor blood pressure off IV fluid -will determine on when to resume lisinopril/HCTZ depending on further blood pressure checks -will do next renal function test on 11/17/2019 (3) Supratherapeutic INR: -admission labs also notable of INR of 9, given vitamin 5 mg oral on admission -coumadin held -INR 4.4 on 11/16/2019, continue to hold coumadin and monitor INR (4) History of pulmonary embolism: -Chronic anticoagulation for remote history of DVTs and PE; as per patient these last know PE or DVT was in 1996 (5) Salivary gland cancer: (6) Metastasis to mediastinal lymph node: (7) Bone metastasis: Following with Dr. Bah for daily XRT and has follow-up scheduled with Dr. Bah of [facility] to further discuss plans for systemic treatment -on tramadol 50mg Q6H PRN currently -prn acetaminophen (8) Anemia: -admission Hgb of 9.2 (most recently documented hgb of 11.4 from 2016) -follow up Hgb stable as 9.1 (9) Hyperkalemia: -admission serum potassium of 5.6 -hyperkalemia resolved with IV fluids (10) Poor appetite: In setting of recent cancer diagnosis, contributing to electrolyte abnormalities -give protein shake BID -Dietitian consult (11) Constipation: -Schedule daily Miralax, added Senokot-S DVT Ppx: SCDs Code status: DNR/DNI Subjective Patient is not in distress. answers questions appropriately. breathing on room air. no acute shortness of breath currently. denies chest pain. denies abdomen pain. is encouraged to ambulate. no dizziness. no lightheadedness Review of Systems Review of Systems: All systems reviewed & are unremarkable except as noted in HPI & below Physical Exam Constitutional: comfortable Eyes: PERRL, conjunctivae normal, anicteric sclerae EOM intact bilaterally ENMT: external ear and nose normal, oropharynx normal Neck: normal visual inspection Respiratory: normal respiratory effort, lungs clear to auscultation Cardiovascular: RRR, no murmur, no edema Gastrointestinal (Abdomen): normal bowel sounds, soft, nontender, no hepatosplenomegaly Musculoskeletal: Head/Neck/Chest: normocephalic and head atraumatic Neurologic: PERRL, EOMI, accommodation nl, no face palsy, no dysarthria CN's II-XI intact bilaterally Psychiatric: A+Ox3, euthymic affect Results & Data Vital Signs (Past 12 Hours) Vital Signs Temp Pulse Pulse Resp BP Pulse Ox 11/16/19 12:54 36.8 C 80 14 162/90 H 97 11/16/19 07:45 37.1 C 77 18 161/68 H 94 11/16/19 07:20 72 11/16/19 04:47 36.8 C 77 16 135/85 91 (1) Anemia Anemia type: unspecified type Qualified Code(s): D64.9 - Anemia, unspecified
[2019-11-16] MEDS ORDERED: ACETAMINOPHEN 325 MG TAB PO PRN (13:58)
--- NOTE | 2019-11-16 15:06 | XRay Report ---
TWO VIEW CHEST CLINICAL HISTORY: Follow-up airspace consolidation. FINDINGS: PA and lateral chest radiographs are compared to study dated 11/15/2019. Correlation is made with PET/CT dated 09/18/2019. The cardiomediastinal silhouette is unremarkable noting atheroscleroti c calcification of the thoracic aorta. Masslike consolidation is again seen in the right lower lobe. No pleural effusion is identified. Minimal atelectasis is seen at the left lung base. There is no pne umothorax. The skeletal structures are osteopenic. A large osteolytic lesion of the left posterior fi fth rib is again noted. IMPRESSION: Masslike consolidation in the right lower lobe has not appreciably changed from yesterday . ACT 112: Negative or not required by law. Electronically signed by: Zbigniew Zimmer M.D. 11/16/2019 3:05 PM
[2019-11-17 07:32] LABS: Hematocrit (blood only) 27.8 % (37-47); Hemoglobin 9.4 g/dL (12.0-16.0); Mean Corpuscular Hemoglobin 32.6 pg (25-34); Mean Corpuscular Hgb Conc 33.8 g/dL (32-36); Mean Corpuscular Volume 96.5 fL (80-100); Mean Platelet Volume 10.3 fL (7.4-10.4); Platelet Count 256 K/uL (130-400); RDW Coefficient of Variation 13.9 % (11.5-14.5); RDW Standard Deviation 47.9 fL (36.4-46.3); Red Blood Count 2.88 M/uL (4.2-5.4); White Blood Count 3.62 K/uL (4.8-10.8)
[2019-11-17 07:35] LABS: Prothrombin Time 19.1 Seconds (9.0-12.0)
[2019-11-17 07:52] LABS: BUN Creatinine Ratio 20.7 (10-20); Est GFR (African American) 58.3; Est GFR (Non-African American) 50.3; Magnesium 1.4 mg/dl (1.8-2.4); Potassium 3.9 mmol/L (3.5-5.1)
[2019-11-17] MEDS: carvediloL 12.5 MG TAB PO SCH (08:37)
[2019-11-17] MEDS: FERROUS SULFATE 325 MG TAB PO SCH (08:38)
[2019-11-17] MEDS: DOCUSATE SODIUM/SENNA 50/8.6MG TAB PO SCH (08:38)
[2019-11-17] MEDS: MAGNESIUM OXIDE 400 MG TAB PO SCH (08:39)
[2019-11-17] MEDS: POLYETHYLENE (MIRALAX) 17 GM PACK PO SCH (08:39)
[2019-11-17] MEDS ORDERED: LISINOPRIL/HCTZ 20/25MG 1 TAB PO SCH (09:00)
[2019-11-17] MEDS: INSULIN ASPART 100 UNITS/ML 3 ML PEN SC SCH ×2 (09:18→13:05)
[2019-11-17] MEDS: CYANOCOBALAMIN 500 MCG TABLET (VITAMIN B-12) PO SCH (09:20)
--- NOTE | 2019-11-17 10:01 | Hospitalist Progress Note ---
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 Metastatic disease versus infectious or inflammatory pneumonitis as differential diagnosis -Afebrile, no leukocytosis, stable cough, no wheezing so lower concern for infectious process. No sick contacts. -procalcitonin is negative -results of elevations of ESR 67 and CRP 2.45 are unrevealing given history of malignancy -no fevers to date -patient breathing on room air -11/15/2019: 1 view CXR: Right hilar/infrahilar opacities have progressively worsened from comparison. Metastatic disease versus infectious or inflammatory pneumonitis are differential considerations.Lytic lesion of the posterior left fifth rib redemonstrated -11/16/2019 2 view CXR: Masslike consolidation in the right lower lobe has not appreciably changed -reviewed outpatient PET scan results in August 2019 and report did comment on increased uptake to right lower lung guevara -discussed with Dr. Bah, patient's oncologist by phone, and he does not advise the need for further lung imaging at this time such as CT scan of the chest. Dr. Bah will coordinate further management of patient's cancer care and treatments. Dr. Bah also recommended to continue coumadin anticoagulation when INR is no longer supratherapeutic -discussed these findings with patient (2) Acute kidney injury superimposed on chronic kidney disease: -on admission labs notable for creatinine of 2.28 for acute kidney injury -after IV fluids and also withholding home blood pressure medications, creatinine on 11/16/2019 afternoon labs is 1.27; blood pressure 162/90 on 11/16/2019 and then off IV fluids -creatinine 1.11 on 11/17/2019, blood pressure remains elevated as systolic 175 so resumed lisinopril/HCTZ (3) Supratherapeutic INR: -admission labs also notable of INR of 9, given vitamin 5 mg oral on admission -coumadin held -INR 4.4 on 11/16/2019, continue to hold coumadin and monitor INR is 2 on 11/17/2019 and patient is to resume coumadin as 5 mg daily (4) History of pulmonary embolism: -Chronic anticoagulation for remote history of DVTs and PE; as per patient these last know PE or DVT was in 1996 (5) Salivary gland cancer: (6) Metastasis to mediastinal lymph node: (7) Bone metastasis: Following with Dr. Bah for daily XRT and has follow-up scheduled with Dr. Bah of [facility] to further discuss plans for systemic treatment -on tramadol 50mg Q6H PRN currently -prn acetaminophen (8) Anemia: -admission Hgb of 9.2 (most recently documented hgb of 11.4 from 2016) -follow up Hgb stable as 9.1 (9) Hyperkalemia: -admission serum potassium of 5.6 -hyperkalemia resolved with IV fluids Hypomagnesemia -serum magnesium of 1.6 on admission and 1.5 on 11/16/2019, patient received IV and oral magnesium with improved serum magnesium levels -serum magnesium of 1.4 on 11/17/2019, additional IV and oral magnesium ordered (10) Poor appetite: In setting of recent cancer diagnosis, contributing to electrolyte abnormalities -give protein shake BID while inpatient and Dietitian consult (11) Constipation: -given Miralax, Senokot-S during hospital stay DVT Ppx: SCDs Code status: DNR/DNI Subjective Patient breathing on room air. she is ambulatory and went bathroom. no acute pain reported to hospital doctor. creatinine is normalized and home blood pressures resumed for hypertension. no dizziness or lightheadedness or headache. coumadin is 2 and plans to resume coumadin as lower dose as 5 mg daily. serum magnesium again is low and patient to get further magnesium supplements. no palpitations. no vomiting and no nausea. patient feeling well and hopes to go home after serum magnesium is repleted. discharge plans discussed at length Review of Systems Review of Systems: All systems reviewed & are unremarkable except as noted in HPI & below Physical Exam Constitutional: comfortable Eyes: PERRL, conjunctivae normal, anicteric sclerae EOM intact bilaterally ENMT: external ear and nose normal, oropharynx normal Neck: normal visual inspection Respiratory: normal respiratory effort, lungs clear to auscultation Cardiovascular: RRR, no murmur, no edema Gastrointestinal (Abdomen): normal bowel sounds, soft, nontender, no hepatosplenomegaly Musculoskeletal: Head/Neck/Chest: normocephalic and head atraumatic Neurologic: PERRL, EOMI, accommodation nl, no face palsy, no dysarthria CN's II-XI intact bilaterally Psychiatric: A+Ox3, euthymic affect Results & Data Vital Signs (Past 12 Hours) Vital Signs Temp Pulse Resp BP Pulse Ox 11/17/19 07:29 37.2 C 98 H 18 175/83 H 93 11/16/19 22:49 37.3 C 90 18 189/70 H 93 (1) Anemia Anemia type: unspecified type Qualified Code(s): D64.9 - Anemia, unspecified
[2019-11-17] MEDS: MAGNESIUM SULFATE / D5W 1 GM/100 ML BAG IV SCH ×3 (10:30→12:20)
[2019-11-17] MEDS: LORATADINE 10 MG TAB PO SCH (10:30)
[2019-11-17] MEDS ORDERED: WARFARIN SOD 5 MG TAB PO ONE (10:30)
[2019-11-17] MEDS: AMLODIPINE BESYLATE 5 MG TAB PO SCH (10:31)
[2019-11-17] MEDS: MULTIVITAMIN TAB PO SCH (13:07)
[2019-11-17 14:55] VITALS: TEMP 98.6; O2SAT 97
--- NOTE | 2019-11-17 15:11 | Discharge Summary ---
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 Was diagnosed with salivary gland cancer in August 2019 and has been undergoing daily radiation at [facility] with Dr. Bah. Did not feel well enough for radiation this morning and was directed to the ED for further evaluation. Denies any fever or chills but endorses cough with yellow productive sputum ever since cancer diagnosis 2 months ago. No wheezing or hemoptysis. Decreased appetite over the last week or so with poor p.o. intake. Also became nauseous with increase tramadol dose from 50 to 100mg two days ago and has been nauseous. Denies any vomiting. Denies lightheadedness, visual changes, chest pain, palpitations, abdominal pain, dysuria or diarrhea. Feels constipated and has not had a bowel movement in 2 days. Saturating at 91% on r oom air. Does not require home O2. Admission Exam Per Admitting Provider General: Elderly woman in no acute distress Eyes: PERRL, conjunctivae normal, mild pallor, anicteric sclerae, EOM intact bilaterally ENMT: External ear and nose normal, oropharynx normal Neck: Right submandibular swelling, Non tender, significant submandibular lymphadenopathy (reported this has been chronic since surgeries/biopsy), no tracheal deviation Respiratory: Normal respiratory effort, no respiratory distress, lungs clear to auscultation, no crackles and no wheezes Cardiovascular: Pulse is RRR. S1 S2 no murmurs. +1 pedal edema Chest (Breasts): Chest: normal inspection of chest Gastrointestinal (Abdomen): Abdomen is not distended, soft, non-tender to palpation, no guarding, no palpable hepatosplenomegaly, normal bowel sounds Musculoskeletal: No cyanosis or clubbing Genitourinary: No CVA tenderness, no suprapubic tenderness Skin: No rash noted on gross inspection, No ulcers noted, hyperpigemented skin on both shins (features of chronic stasis dermatitis) Neurologic: Alert and oriented x 3, No focal weakness, sensation grossly intact Psychiatric: Euthymic affect, normal judgement Lymphatic: +Right submandibular lymphadenopathy, No axillary lymphadenopathy Principal Diagnosis shortness of breath, salivary gland cancer with Bone metastasis and Metastasis to mediastinal lymph node with suspected metastasis to lung, Acute kidney injury superimposed on chronic kidney disease, Supratherapeutic INR, Hyperkalemia, Anemia, Hypomagnesemia Discharge Exam Constitutional comfortable Eyes PERRL, conjunctivae normal, anicteric sclerae EOM intact bilaterally ENMT external ear and nose normal, oropharynx normal Neck normal visual inspection Respiratory normal respiratory effort, lungs clear to auscultation Cardiovascular RRR, no murmur, no edema Gastrointestinal (Abdomen) normal bowel sounds, soft, nontender, no hepatosplenomegaly Musculoskeletal Head/Neck/Chest: normocephalic and head atraumatic Neurologic PERRL, EOMI, accommodation nl, no face palsy, no dysarthria CN's II-XI intact bilaterally Psychiatric A+Ox3, euthymic affect Discharge Data Allergies Allergy/AdvReac Type Severity Reaction Status Date / Time [id number] Reductase Allergy Unknown muscle Verified 11/11/19 12:04 Inhibitor cramping and difficulty walking onion AdvReac Intermediate Verified 11/11/19 12:04 ADHESIVE Allergy Unknown irritated Uncoded 11/11/19 12:04 skin Consultations 11/15/19 11:57 ED Decision to Admit Stat 11/15/19 14:04 Consult Case Management - Discharge Planning Routine Hospital Course (1) Shortness of breath: suspected of cancer metastatic to lung -This is a 69yo F with a 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 Metastatic disease versus infectious or inflammatory pneumonitis as differential diagnosis -Afebrile, no leukocytosis, stable cough, no wheezing so lower concern for infectious process. No sick contacts. -procalcitonin is negative -results of elevations of ESR 67 and CRP 2.45 are unrevealing given history of malignancy -no fevers to date -patient breathing on room air -11/15/2019: 1 view CXR: Right hilar/infrahilar opacities have progressively worsened from comparison. Metastatic disease versus infectious or inflammatory pneumonitis are differential considerations.Lytic lesion of the posterior left fifth rib redemonstrated -11/16/2019 2 view CXR: Masslike consolidation in the right lower lobe has not appreciably changed -reviewed outpatient PET scan results in August 2019 and report did comment on increased uptake to right lower lung guevara -discussed with Dr. Bah, patient's oncologist by phone, and he does not advise the need for further lung imaging at this time such as CT scan of the chest. Dr. Bah will coordinate further management of patient's cancer care and treatments. Dr. Bah also recommended to continue coumadin anticoagulation when INR is no longer supratherapeutic -discussed these findings with patient -discharge to home Patient should follow up with Dr. Otto Bah, an appointment is not yet scheduled by his office yet. Patient should notify [facility] oncology office [place] [address] [address] of hospital discharge, that her hospital admission care was discussed with Dr. Bah by hospital Dr. William and that a follow up visit to oncology needs to be scheduled upcoming scheduled appointments 11/21/2019 11:20 AM Provider Jimena Crawley DO Department Family Practice [facility] 12/06/2019 11:50 AM Provider Coag Clinic [facility] Department Pharmacy, [facility] 12/11/2019 11:30 AM Provider Kristi Rodríguez MS Department Cardiovascular Genetics, [facility] 01/10/2020 2:30 PM Provider Jayce Arciniega DO Department Cardiology, [facility] (2) Acute kidney injury superimposed on chronic kidney disease: -on admission labs notable for creatinine of 2.28 for acute kidney injury -after IV fluids and also withholding home blood pressure medications, creatinine on 11/16/2019 afternoon labs is 1.27; blood pressure 162/90 on 11/16/2019 and then off IV fluids -creatinine 1.11 on 11/17/2019, blood pressure remains elevated as systolic 175 so resumed lisinopril/HCTZ (3) Supratherapeutic INR: -admission labs also notable of INR of 9, given vitamin 5 mg oral on admission -coumadin held -INR 4.4 on 11/16/2019, continue to hold coumadin and monitor INR is 2 on 11/17/2019 and patient is to resume coumadin as 5 mg daily -Patient will need close INR monitoring as per primary care doctor and coumadin clinic while on coumadin. Hospitalist also called appointment line to schedule earlier coumadin clinic for INR testing. Patient will also need follow up basic metabolic panel and serum magnesium levels with primary care doctor -INR is 2 on 11/17/2019 discharge medication of warfarin (coumadin) 5 mg daily. discharge medication sent electronically to [facility] pharmacy on [address] [place] [address] (4) History of pulmonary embolism: -Chronic anticoagulation for remote history of DVTs and PE; as per patient these last know PE or DVT was in 1996 (5) Salivary gland cancer: (6) Metastasis to mediastinal lymph node: (7) Bone metastasis: Following with Dr. Bah for daily XRT and has follow-up scheduled with Dr. Bah of [facility] to further discuss plans for systemic treatment -on tramadol 50mg Q6H PRN currently -prn acetaminophen (8) Anemia: -admission Hgb of 9.2 (most recently documented hgb of 11.4 from 2016) -follow up Hgb stable as 9.1 (9) Hyperkalemia: -admission serum potassium of 5.6 -hyperkalemia resolved with IV fluids -hold off potassium supplements at home until follow up with primary care do ctor. Hypomagnesemia -serum magnesium of 1.6 on admission and 1.5 on 11/16/2019, patient received IV and oral magnesium with improved serum magnesium levels -serum magnesium of 1.4 on 11/17/2019, additional IV and oral magnesium ordered and subsequent serum magnesium as 2.3. Discharge medication of magnesium oxide twice a day for 15 days . (10) Poor appetite: In setting of recent cancer diagnosis, contributing to electrolyte abnormalities -give protein shake BID while inpatient and Dietitian consult (11) Constipation: -given Miralax, Senokot-S during hospital stay DVT Ppx: SCDs Code status: DNR/DNI Total Time Total Time Spent Total Time Spent (In Minutes): 40 minutes Total Time Includes: Examination of the Patient, Discharge Planning, Medication Reconciliation and Communication With Other Providers Discharge Plan Discharge Items Patient Disposition: Home - Self-Care Reason For Visit: SOB, REBECCA, ON CKD, HYPERKALEMIA Discharge Diagnosis: shortness of breath, salivary gland cancer with Bone metastasis and Metastasis to mediastinal lymph node with suspected metastasis to lung, Acute kidney injury superimposed on chronic kidney disease, Supratherapeutic INR, Hyperkalemia, Anemia, Hypomagnesemia Condition on Discharge: Good Activity: Resume your previous activity Non-emergency contact: Primary Care Provider and Oncologist Call non-emergency contact if: you have any medication questions Follow-up/Referrals: Jimena Crawley DO [Primary Care Provider] - Diet: Carb Consistent or DM2 Addtl Attending Provider Instructions: discharge to home Patient will need close INR monitoring as per primary care doctor and coumadin clinic while on coumadin. Hospitalist also called appointment line to schedule earlier coumadin clinic for INR testing. Patient will also need follow up basic metabolic panel and serum magnesium levels with primary care doctor INR is 2 on 11/17/2019 discharge medication of warfarin (coumadin) 5 mg daily. Discharge medication of magnesium oxide twice a day for 15 days . hold off potassium supplements at home until follow up with primary care doctor. discharge medication sent electronically to [facility] pharmacy on [address] [facility] [place] [address] Patient should follow up with Dr. Otto Bah, an appointment is not yet scheduled by his office yet. Patient should notify [facility] oncology office of [facility] [place] [address] of hospital discharge, that her hospital admission care was discussed with Dr. Bah by [facility] Dr. William and that a follow up visit to oncology needs to be scheduled upcoming scheduled appointments 11/21/2019 11:20 AM Provider Jimena Crawley DO Department Family Practice [facility] 12/06/2019 11:50 AM Provider Coag Clinic [facility] Department Pharmacy, [facility] 12/11/2019 11:30 AM Provider Kristi Rodríguez MS Department Cardiovascular Genetics, [facility] 01/10/2020 2:30 PM Provider Jayce Arciniega DO Department Cardiology, [facility] Pending Studies at Discharge: No Stand-Alone Forms: My [employer], Smoking Cessation Medications and DC Order Prescriptions: New magnesium oxide 400 mg (241.3 mg magnesium) Tablet 400 mg PO BID 15 Days Qty: 30 RF: 0 Continued morphine 15 mg tablet extended release 15 mg PO Q12H RF: 0 glimepiride 2 mg tablet 2 mg PO DAILY RF: 0 carvedilol [Coreg] 12.5 mg tablet 12.5 mg PO BID RF: 0 cyanocobalamin (vitamin B-12) 1,000 mcg capsule 1,000 mcg PO BID RF: 0 metformin 1,000 mg tablet 1,000 mg PO BID RF: 0 multivitamin Tablet 1 tab PO QDL RF: 0 amlodipine 5 mg Tablet 5 mg PO QDL RF: 0 ferrous sulfate [iron] 325 mg (65 mg iron) Tablet 325 mg PO BID RF: 0 lisinopril-hydrochlorothiazide 20-25 mg Tablet 1 tab PO QDL RF: 0 loratadine 10 mg Tablet 10 mg PO QDL RF: 0 tramadol 50 mg tablet 100 mg PO Q6H PRN (Reason: pain) RF: 0 Discontinued potassium chloride [Klor-Con M20] 20 mEq Tablet,Er Particles/Crystals 20 meq PO QDL RF: 0 warfarin 5 mg tablet 10 mg PO SUTUTHSA@1600 RF: 0 warfarin 5 mg Tablet 5 mg PO MOWEFR@1600 RF: 0 Discharge Orders: Discharge Order (Routine); Ordered 11/17/19 Ordered By: Joaquim William Admission Data Admit Date/Time: 11/15/19 12:29 Attending Provider: Joaquim William Admit Provider: Deja Polanco I. Primary Care Provider: Jimena Crawley Other Providers: Deja Polanco I.
[2019-11-17 15:15] VITALS: BP 166/84; PULSE 90
[2019-11-17] MEDS ORDERED: MAGNESIUM OXIDE 400 MG TAB PO SCH (21:00)
== END 2019-11-17 15:55 | disposition home or self-care (01) ==
LOC: ED 09:44 → 2E 12:29 → INTOOBSV 12:29 → SUATTDRO 12:29 → 2E 14:14 → 4W 11-16 14:11